=== PATIENT | female | born 1985 | race Caucasian/White ===

== ENCOUNTER 2016-03-17 17:07 | Outpatient (CLI) | payer BC ==
[~2016-03-17] VITALS: Ht 162.6 cm; Wt 80.9 kg
[2016-03-17 17:28] VITALS: BP 111/81; PULSE 107; TEMP 98.1
[2016-03-17 18:00] VITALS: BP 111/81; PULSE 107
== END 2016-03-17 19:15 | disposition home or self-care (01) ==
LOC: LDRO 17:07
DX: O47.03 False labor before 37 completed weeks of gestation, third trimester (principal); Z3A.33 33 weeks gestation of pregnancy

== ENCOUNTER 2016-04-21 06:50 | Inpatient (IN) | payer BC ==
[2016-04-21] VITALS (26 sets, daily range): BP systolic 84–121; BP diastolic 48–80; PULSE 65–126; TEMP 97.6–97.9
[~2016-04-21] VITALS: Ht 162.6 cm; Wt 82.3 kg
[2016-04-21] MEDS ORDERED: PRENATAL1 TA7 PO (06:51)
[2016-04-21] MEDS ORDERED: WELLBUTRIN 75MG75 MG PO (06:52)
[2016-04-21 10:55] LABS: BASO % 0.2 % (0.0-2.0); EOS % 0.3 % (0-4.0); GRAN # 7.3 (1.4-6.5); HEMOGLOBIN 12.2 g/dl (12.5-16.0); LYMPH # 1.4 (1.2-3.4); LYMPH % 14.8 % (20.0-51.0); MEAN CELL VOLUME 87 fl (80.0-100.0); MEAN CORPUSCULAR HEMOGLOBIN 29 pg (27.0-31.0); MEAN CORPUSCULAR HGB CONC 34 g/dl (33.0-37.0); MEAN PLATELET VOLUME 12.9 fl (7.4-10.4); MONO # 0.5 (0.1-0.6); MONO % 5.2 % (1.7-9.3); PLATELET COUNT 188 K/mm3 (130-400); RED BLOOD COUNT 4.19 M/mm3 (4.10-5.30); REDCELL DISTRIBUTION WIDTH-CV 13.7 % (11.5-14.5); WHITE BLOOD COUNT 9.3 K/mm3 (4.8-10.8)
[2016-04-21 10:56] LABS: HEMATOCRIT 36.3 % (37.0-47.0)
[2016-04-22 07:01] LABS: BASO # 0.1 (0.0-0.2); BASO % 0.5 % (0.0-2.0); EOS # 0.2 (0.0-0.7); EOS % 1.6 % (0-4.0); GRAN # 6.8 (1.4-6.5); GRAN % 74.4 % (42.2-75.2); LYMPH # 1.4 (1.2-3.4); LYMPH % 15.2 % (20.0-51.0); MEAN CELL VOLUME 87 fl (80.0-100.0); MEAN CORPUSCULAR HGB CONC 33 g/dl (33.0-37.0); MEAN PLATELET VOLUME 12.8 fl (7.4-10.4); MONO # 0.7 (0.1-0.6); MONO % 7.6 % (1.7-9.3); PLATELET COUNT 168 K/mm3 (130-400); RED BLOOD COUNT 3.59 M/mm3 (4.10-5.30); REDCELL DISTRIBUTION WIDTH-CV 13.6 % (11.5-14.5); WHITE BLOOD COUNT 9.2 K/mm3 (4.8-10.8)
[2016-04-22 07:40] LABS: HEMATOCRIT 31.1 % (37.0-47.0); HEMOGLOBIN 10.3 g/dl (12.5-16.0); MEAN CORPUSCULAR HEMOGLOBIN 29 pg (27.0-31.0)
[2016-04-22 09:04] VITALS: BP 103/74; PULSE 61; TEMP 97.4
[2016-04-22 19:52] VITALS: BP 125/75; PULSE 85; TEMP 97.6
[2016-04-23] MEDS ORDERED: PERCOCET 325 MG1 TA2 PO (09:05)
[2016-04-23] MEDS ORDERED: IBU800 M1 PO (09:05)
[2016-04-23 09:54] VITALS: BP 110/70; PULSE 102; TEMP 97.8
== END 2016-04-23 13:55 | disposition home or self-care (01) | DRG 775 ==
LOC: LDR 06:50 → OB 06:50
PROVIDERS: Student in an Organized Health Care Education/Training Program
PROC: 10E0XZZ Delivery of Products of Conception, External Approach (ICD-10-PCS; principal; 2016-04-21)
PROC: 0KQM0ZZ Repair Perineum Muscle, Open Approach (ICD-10-PCS; 2016-04-21)
PROC: 3E033VJ Introduction of Other Hormone into Peripheral Vein, Percutaneous Approach (ICD-10-PCS; 2016-04-21)
DX: O75.89 Other specified complications of labor and delivery (principal); O70.1 Second degree perineal laceration during delivery; Z3A.39 39 weeks gestation of pregnancy; Z37.0 Single live birth
CPT/HCPCS: J2590; J7120